=== PATIENT | male | born 1995 | race Native Hawaiian/Other Pacific Islander ===

== ENCOUNTER 2022-09-18 10:09 | Outpatient (CLI) | payer BC, SELFPAY ==
--- OUTSIDE RECORDS SUMMARY | 2022-09-18 10:11 | XMS_ITS | Encounter Summary ---
:1995 Author Organization [facility] Address [facility] [place] [address] Care Team Providers Name Role Phone No Ref-Primary, Physician Primary Care Provider [phone] Reason for Visit Reason Onset Date Comments Lab Result Notice 04/10/2020 Encounter Details Date Type Department Care Team Description 04/10/2020 Telephone [facility] Abdulaziz Quezada RN Lab Result Notice [place] [address] [place] [id number] Social History Tobacco Use Types Packs/Day Years Used Date Smoking Tobacco: Never Assessed Sex Assigned at Date Recorded Not on file COVID-19 Exposure Response Date Recorded In the last month, have you been in contact Unable to assess 04/07/2020 9:05 AM CDT with someone who was confirmed or suspected to have Coronavirus / COVID-19? 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 This means that we didn't find the virus that causes COVID-19 in your sample. A test may show negative when you do actually have the virus. This can happen when the virus is in the early stages of infection, before you feel illness symptoms. If you have symptoms Stay home and away from others (self-isolate) until you meet ALL of the guidelines below: ??? You've had no fever--and no medicine that reduces fever--for 3 full days (72 hours). And ? Your other symptoms have gotten better. For example, your cough or breathing has improved. And? At least 10 days have passed since your symptoms started. During this time: ??? Stay home. Don't go to work, school or anywhere else. ??? Stay in your own room, including for meals. Use your own bathroom if you can. ??? Stay away from others in your home. No hugging, kissing or shaking hands. No visitors. ??? Clean ???high touch?? surfaces often (doorknobs, counters, handles, etc.). Use a household cleaning spray or wipes. You can find a full list on the EPA website at www.epa.gov/pesticide-registration /fjeo-r-wjormyoddxavi-snl-tochpar-kswp-cov-2. ??? Cover your mouth and nose with a mask, tissue or washcloth to avoid spreading germs. ??? Wash your hands and face often with soap and water. Going back to work Check with your employer for any guidelines to follow for going back to work. You are sent a letter for your Employer which will serve as formal document notice that you, the employee, tested negative for COVID-19, as of the testing date shown above. If your symptoms worsen or other concerning symptoms, contact PCP, oncare or consider returning to Emergency Dept. Where can I get more information? [facility]: www.[facility].org/covid19/ ??? Coronavirus Basics: www.health.[facility].mo.us/diseases/coronavirus/basics.html ??? [facility] Hotline (017-601-9513) {Name] Abdulaziz Quezada RN [employer] [facility] Emergency Dept Lab Result RN documented in this encounter Plan of Treatment Not on filedocumented as of this encounter Visit Diagnoses Not on filedocumented in this encounter Care Teams Teacher Aide Clerical Relationship Specialty Start Date End Date No Ref-Primary, Physician PCP - General 04/07/20 documented as of this encounter
--- OUTSIDE RECORDS SUMMARY | 2022-09-18 10:11 | XMS_ITS | Encounter Summary ---
:1995 Author Organization [facility] Address [address] [place] [address] Care Team Providers Name Role Phone No Ref-Primary, Physician Primary Care Provider [phone] Encounter Details Date Type Department Care Team Description 05/06/2020 Travel Social History Tobacco Use Types Packs/Day Years Used Date Smoking Tobacco: Never Assessed Sex Assigned at Date Recorded Not on file COVID-19 Exposure Response Date Recorded In the last month, have you been in contact with No / Unsure 05/06/2020 8:05 AM CDT someone who was confirmed or suspected to have Coronavirus / COVID-19? documented as of this encounter Plan of Treatment Not on filedocumented as of this encounter Visit Diagnoses Not on filedocumented in this encounter Care Teams Processing Inspector Relationship Specialty Start Date End Date No Ref-Primary, Physician PCP - General 04/07/20 documented as of this encounter
--- OUTSIDE RECORDS SUMMARY | 2022-09-18 10:11 | XMS_ITS | Clinical Summary ---
:1995 Author Organization [facility] Address [address] [place] [address] Care Team Providers Name Role Phone Unavailable Primary Care Provider Unavailable Source Comments Patient records contain information from all sites at [facility]. For routine questions regarding patient records, call [phone] during business hours, M-F 8:00 AM - 5:00 PM Central Time. Record requests for emergency care only can be directed to [phone] at any time.[facility] Social History Tobacco Use Types Packs/Day Years Used Date Smoking Tobacco: Never Assessed Sex Assigned at Date Recorded Not on file Plan of Treatment Health Maintenance Due Date Last Done Comments HIV Screening 1995 Hepatitis B Vaccines (1 of 3 - 1995 3-dose series) Hepatitis C Screening 1995 HPV Vaccines (1 - Male 2-dose 2006 series) DTaP,Tdap,and Td Vaccines (1 - 2016 Tdap) COVID-19 Vaccine (2 - Moderna 07/27/2021 06/29/2021 series) Depression Screening (Annual 10/18/2021 PHQ-2) Influenza Vaccine (#1) 2022 10/15/2020 Pneumococcal vaccine (0-64 years) Aged Out No longer eligible based on patient's age to complete this topic Insurance Payer Benefit Plan / Subscriber ID Effective Dates Phone Addre ss Type Group BLUE CROSS [facility] BCBS [id number] 2019-Present PPO SHIELD BASIC/FOCUS
--- OUTSIDE RECORDS SUMMARY | 2022-09-18 10:11 | XMS_ITS | Encounter Summary ---
:1995 Author Organization [facility] Address [address] [place] [address] Care Team Providers Name Role Phone No Ref-Primary, Physician Primary Care Provider [phone] Encounter Details Date Type Department Care Team Description 04/07/2020 Travel Social History Tobacco Use Types Packs/Day [...] Diagnoses Not on filedocumented in this encounter Additional Health Concerns Infection Onset Date Last Indicated Resolved Time Rule Out COVID-19 04/07/2020 04/07/2020 04/08/2020 9:1 0 PM CDT documented as of this encounter Care Teams Assisted Living Care Manager Relationship Specialty Start Date End Date No Ref-Primary, Physician PCP - General 04/07/20 documented as of this encounter
--- OUTSIDE RECORDS SUMMARY | 2022-09-18 10:11 | XMS_ITS | Encounter Summary ---
:1995 Author Organization [facility] Address [address] [place] [address] Care Team Providers Name Role Phone Unavailable Primary Care Provider Unavailable Reason for Visit Reason Onset Date Comments Outpatient COVID-19 Testing 05/10/2020 Encounter Details Date Type Department Care Team Description 05/10/2020 External Outreach Department of Family Post, Merritt Rosenberg, Infection Upper Medicine, [facility] (Primary Clinic [place], [address] [facility] [place] [address] [phone] [place] [address] [address] (Work) [place], [place] [phone] (Fax) [phone] Social History Tobacco Use Types Packs/Day Years Used Date Smoking Tobacco: Never Assessed Sex Assigned at Date Recorded Not on file documented as of this encounter Progress Notes Paramjit Cristina M.S., R.N. - 05/10/2020 8:55 AM CDT Encounter created for the drive-through COVID-19 testing. documented in this encounter Miscellaneous Notes Result Encounter Note - Patrica Nolan - 05/13/2020 11:44 AM CDT Gave Negative COVID-19 result to patient via phone. documented in this encounter Plan of Treatment Not on filedocumented as of this encounter Procedures Procedure Name Priority Date/Time Associated Diagnosis Comme nts SARS CORONAVIRUS-2, Routine 05/12/2020 11:17 AM Infection Uppe r Results for this PCR CDT Respiratory procedure are i n the results section. documented in this encounter Results SARS Coronavirus-2, PCR Symptomatic (05/12/2020 11:17 AM CDT) [facility] Method Time Signature SARS Swab, 05/12/2020 [facility] Coronavirus-2 Nasopharynx 11:32 PM Source CDT SARS Undetected Undetected 05/12/2020 [facility] Coronavirus-2 11:32 PM , PCR CDT Comment: SARS-CoV-2 RNA absent. This result does not rule out COVID-19 in the patient, as the sensitivity of the test depends o n the timing of the specimen collection and quality of the specimen. Result should be correlated with patient's history and clinical presentat ion. ----ADDITIONAL INFORMATION---- This test was developed and its performa nce characteristics determined by [facility] in a manner co nsistent with CLIA requirements. Independent review by the U.S. Food and Drug Administration is pending. Visit the CDC website: https://www.cdc.gov/coronavirus/ ?? for the most recent guidelines on [place] virus testing. Fact Sheet for Healthcare Providers: (https://www.Itaconix/it-mmfil es/ Provider_Fact_Sheet_for_[facility]_COVI D-19.pdf) Fact Sheet for Patients: (https://www.Done In :60 Seconds.PublicEngines/it-mmfil es/ Patient_Fact_Sheet_for_COVID-19.pdf) Specimen Anatomical Collection Method Collection Time Receive d Time (Source) Location / / Volume Laterality Varies 05/12/2020 11:17 05/12/2020 2:53 (Nasopharynx) AM CDT PM CDT Merritt Muhammad M.D. LAB MICROBIOLOGY - GENERAL O RDERABLES Performing Organization Address City/State/ZIP Code Phon e Number [facility] - [address] [place], [place] [address] [place] [address] Laboratories-[facility] [address] documented in this encounter Visit Diagnoses Diagnosis Infection Upper Respiratory - Primary documented in this encounter Additional Health Concerns Infection Onset Date Last Indicated Resolved Time COVID19 Pending 05/10/2020 05/12/2020 05/12/2020 11:33 PM CDT documented as of this encounter
--- OUTSIDE RECORDS SUMMARY | 2022-09-18 10:11 | XMS_ITS | Encounter Summary ---
:1995 Author Organization [facility] Address [address] [place] [address] Care Team Providers Name Role Phone No Ref-Primary, Physician Primary Care Provider [phone] Encounter Details Date Type Department Care Team Description 04/07/2020 Orders Only [facility] [place] pected COVID-19 virus Care [place] infection (Primary Dx) [address] [place] [address] Social History Tobacco Use Types Packs/Day Years Used Date Smoking Tobacco: Never Assessed Sex Assigned at Date Recorded Not on file COVID-19 Exposure Response Date Recorded In the last month, have you been in contact Unable to assess 04/07/2020 9:05 AM CDT with someone who was confirmed or suspected to have Coronavirus / COVID-19? documented as of this encounter Miscellaneous Notes Result Encounter Note - Melinda Bolton RN - 04/07/2020 3:50 PM CDT Coronavirus (COVID-19) Notification Your result for COVID-19 is Negative Letter sent that will serve as a formal notice for your employer documented in this encounter Plan of Treatment Not on filedocumented as of this encounter Procedures Procedure Name Priority Date/Time Associated Diagnosis Comme nts COVID-19 VIRUS Routine 04/07/2020 3:46 PM Suspected COVID-19 R esults for this (CORONAVIRUS) BY CDT virus infection procedur e are in PCR the results section. documented in this encounter Results Symptomatic COVID-19 Virus (Coronavirus) by PCR (04/07/2020 3:46 PM CDT) [facility] Method Time Signature COVID-19 Nasopharyngeal 04/07/2020 [place] Virus PCR to 4:33 PM CDT CL[facility]ICS [facility] [place] [place] Source COVID-19 Not Detected 04/08/2020 [facility] Virus PCR to 9:10 PM CDT [facility] Result [facility] Comment: Collection of multiple specimens from th e same patient may be necessary to detect the virus. The possibility of a f alse negative should be considered if the patient's recent exposure or clinica l presentation suggests 2019 nCOV infection and diagnostic tests for other causes of illness are negative. Repeat testing may be considered in this setting. Viral RNA was extracted via a validated method and subsequently underwent single step reverse transcriptase-real t lashell polymerase chain reaction using primers to the CDC specified N1,N2 gene targets of CoV2 and human DIRECTOR BIOSTATISTICS as an internal control. A negative result does not rule out the presence of real-time PCR inhibitors in the specimen or COVID-19 RNA in kerri ntrations below the limit of detection of the assay. The possibility of a fals e negative should be considered if the patients recent exposure or clinical pr esentation suggests COVID-19. Additional testing or repeat testing req uires consultation with the laboratory. Nasopharyngeal specimen is the preferred choice for swab-based SARS CoV2 testing. When collection of a nasopharyn geal swab is not possible the following are acceptable alternatives: an oropharyngeal (OP) specimen collected by a healthcare professional, or a nasal mid-turbinate (NMT) swab collected by a healthcare professional or by onsite self-collection (using a flocked tapered swab), or an anterior nares specimen collected by a healthcare profe ssional or by onsite self-collection (using a round foam swab). (Centers for Disease Control) Testing performed by [facility], Room 1-[address], [address] [place], [place] [id number]. T his test was developed and its performance characteristics determined b y the [facility]. It has not been cleared or appr carleen by the FDA. The laboratory is regulated under the Cl inical Laboratory Improvement Amendments of 1988 (CLIA-88) as qualifie d to perform high-complexity testing. This test is used for clinical purposes. It should not be regarded as investigational or for research. Specimen (Source) Anatomical Collection Method Collection Time Re ceived Time Location / / Volume Laterality Specimen from 04/07/2020 3:46 04/07/2020 nasopharyngeal PM CDT 4:33 PM CDT structure (specimen) Stephan Ames MD LAB - MICRO GENERAL ORDERABL ES Performing Organization Address City/State/ZIP Code Phon e Number [facility] [address] [place] [address] [facility] Room: [address] [address] [address] [place], [place] [address] [place] documented in this encounter Visit Diagnoses Diagnosis Suspected COVID-19 virus infection - [facility] joy documented in this encounter Additional Health Concerns Infection Onset Date Last Indicated Resolved Time Rule Out COVID-19 04/07/2020 04/07/2020 04/08/2020 9:1 0 PM CDT documented as of this encounter Care Teams Dental Laboratory Technology Teacher Relationship Specialty Start Date End Date No Ref-Primary, Physician PCP - General 04/07/20 documented as of this encounter
--- OUTSIDE RECORDS SUMMARY | 2022-09-18 10:11 | XMS_ITS | Clinical Summary ---
:1995 Author Organization [facility] [place] [address] Care Team Providers Name Role Phone Pcp, No Primary Care Provider Unavailable Allergies Active Allergy Reactions Severity Noted Date Comments Aspirin Angioedema 07/27/2018 Medications Medication Sig Dispensed Refills Start Date End Date Status predniSONE (DELTASONE) Take 2 tablets by 8 Tablet 0 Active 20 mg mouth once daily tabletIndications: with food for 4 Sore throat, COVID-19 days for congestion. Active Problems Not on file Social History Tobacco Use Types Packs/Day Years Used Date Never Smoker Smokeless Tobacco: Never Used Tobacco Cessation: Counseling Given: Yes Alcohol Use Standard Drinks/Week Comments Yes 0 (1 standard drink = 0.6 oz pure alcoho l) Sex Assigned at Date Recorded Not on file Obstetrics History Last Filed Vital Signs Vital Sign Reading Time Taken Comments Blood Pressure 135/89 10/18/2021 12:15 PM SYSTEMS LEAD Pulse 94 10/18/2021 12:15 PM SYSTEMS LEAD Temperature 36.6 ??C (97.9 ??F) 10/18/2021 12:15 PM SYSTEMS LEAD Respiratory Rate 18 10/18/2021 12:15 PM SYSTEMS LEAD Oxygen Saturation 98% 10/18/2021 12:15 PM SYSTEMS LEAD Inhaled Oxygen Concentration - - Weight 134.3 kg (296 lb) 10/18/2021 12:15 PM SYSTEMS LEAD Height 175.3 cm (5' 9) 10/18/2021 12:15 PM SYSTEMS LEAD Body Mass Index 43.71 10/18/2021 12:15 PM SYSTEMS LEAD Plan of Treatment Health Maintenance Due Date Last Done Comments COVID-19 vaccine series (#1) 1997 HPV series for age 9-26 (1 - Male 2-dose 2008 series) Tdap 2008 Depression screening for age 12+ 2009 HIV for age 15-65 2012 Hepatitis C screening for age 18-79 2015 Tetanus booster 2017 Influenza for age 9-49 06/18/2022 BMI (ht and wt on same day) for age 18+ 10/18/2022 10/18/19 22, 07/27/2018 Results Not on filefrom Last 3 Months Insurance Payer Benefit Plan / Subscriber ID Effective Dates Phone Addre ss Type Group BLUE [employer]OSS [place] [id number] 2019-Present [address] [id number] [place] [address] Care Teams Casino Floor Person Relationship Specialty Start Date End Date Pcp, No PCP - General 07/27/18 .
--- OUTSIDE RECORDS SUMMARY | 2022-09-18 10:11 | XMS_ITS | Encounter Summary ---
:1995 Author Organization [facility] Address [address] [place] [address] Care Team Providers Name Role Phone Unavailable Primary Care Provider Unavailable Reason for Visit Reason Comments COVID Inquiry Encounter Details Date Type Department Care Team Description 10/03/2020 Clinical Communication Department of [facility] Inquiry Ophthalmology in [place], [place] [address] [place] [address] Social History Tobacco Use Types Packs/Day Years Used Date Smoking Tobacco: Never Assessed Sex Assigned at Date Recorded Not on file documented as of this encounter Miscellaneous Notes Telephone Encounter - Sammi Dobson Valentín - 10/03/2020 12:49 PM CST COVID-19 Nurse Line Screening ASSESSMENT Combo COVID + Upper Respiratory Infection (URI) Screening Select the most appropriate pathway: : Adult Have you had close contact* with a person who has a LABORATORY CONFIRMED case of COVID-19 in the past 14 days?: Yes- Provide quarantine instructions. (Continue Screening) In the last 48 hours, have you had a fever* OR symptoms that are unrelated to a preexisting illness?: New sore throat Do you have any of the following urgent symptoms?: No urgent symptoms noted (Continue Screening) Do you have any of the following respiratory syntonical virus (RSV) complications? : No complications noted (Continue Screening) Are all the following symptoms present: temperature of 100.0 degrees Fahrenheit or greater, muscle aches or headache AND a cough?: No all symptoms are not present (End Screening) Symptom Onset Date of symptom onset: 10/03/20 Testing Recommendation Endpoint Is testing recommended? : Recommended to test PLAN Endpoint recommendation: Screening negative, COVID- 19 testing indicated per request for public health , sent to [place] located at [address] [place] [address]. The entrance is on the north side of the building.You must call [phone] for an appointment time.Testing hours are Daily 9 am to 7 pm.When you arrive at the testing site: Remain in your vehicle and check-in by phone using the same appointment linenumber. and Please avoid using public transportation per CDC recommendation. If you do not have personal transportation please self- quarantine until a personal transportation option is available. Care Points: -Wash hands frequently with soap and water for at least 20 seconds -If soap and water are not available, use a hand wallpaper hanger -Avoid touching your eyes, nose and mouth. -Clean and disinfect high-touch surfaces routinely. -Wear a mask over your nose and mouth. A cloth face cover is not a substitute for social distancing -Continue to keep about 6 feet between yourself and others. -Avoid public areas and public transportation. -Find new ways to connect with family and friends, get support and share feelings. -Seek emergent care if any of the following occur Trouble breathing Bluish lips or face Persistent pain or pressure in the chest New confusion or inability to rouse. -Notify your regular care provider of any new or worsening symptoms. Symptomatic Carepoints: Separate yourself from others and stay in a specific sick room if able. Avoid sharing personal or household items. Rest. Hydrate. Take Acetaminophen/Ibuprofen as needed to control fever and muscles aches. Use over the counter medications as needed for other symptoms. Education: Not applicable Patient agreeable to plan of care: Yes The following references were used: [facility] novel coronavirus (COVID- 19) resources ARCH ASSISTANT MEMBER documented in this encounter Plan of Treatment Not on filedocumented as of this encounter Visit Diagnoses Not on filedocumented in this encounter
--- OUTSIDE RECORDS SUMMARY | 2022-09-18 10:11 | XMS_ITS | Encounter Summary ---
:1995 Author Organization [facility] Address [address] [place] [address] Care Team Providers Name Role Phone Unavailable Primary Care Provider Unavailable Reason for Visit Reason Comments Results Encounter Details Date Type Department Care Team Description 05/13/2020 Clinical Communication [facility], Results Internal Medicine, [facility], in [address] [place] [address] [place], [place] [phone] (Work) [phone] Social History Tobacco Use Types Packs/Day Years Used Date Smoking Tobacco: Never Assessed Sex Assigned at Date Recorded Not on file documented as of this encounter Plan of Treatment Not on filedocumented as of this encounter Visit Diagnoses Not on filedocumented in this encounter
--- OUTSIDE RECORDS SUMMARY | 2022-09-18 10:11 | XMS_ITS | Encounter Summary ---
:1995 Author Organization [facility] Address [address] [place] [address] Care Team Providers Name Role Phone Unavailable Primary Care Provider Unavailable Encounter Details Date Type Department Care Team Description 05/11/2020 Clinical Communication Division of [facility] Internal Alfred Pope, Medicine, Juanito Quarles, [place], in [place], [place] [address] [place] [address] Social History Tobacco Use Types Packs/Day Years Used Date Smoking Tobacco: Never Assessed Sex Assigned at Date Recorded Not on file documented as of this encounter Miscellaneous Notes Telephone Encounter - Alfred Brown, R.N., [facility] - 05/11/2020 2:33 PM CDT COVID-19 Nurse Line Screening Patient called COVID Nurse Line to inquire about a COVID-19 nasopharyngeal swab test. Patient did not meet criteria for testing. However, patient is requesting to be tested at this time. RN provided education on the increased probability of getting a false negative result. Patient understands and is aware of the risk of a false negative. All questions answered at this time. ASSESSMENT COVID 19 Screening Have you had a laboratory confirmed COVID-19Positive test in the last 3 months?: No- Continue screening. Have you had close contact with a person who has a LABORATORY CONFIRMED case of COVID-19?: No - Continue screening. In the last 48 hours have you had any of the following symptoms?: No - Complete screening. Consider alternative diagnosis. We are not currently testing or isolating patients or visitors who have no symptoms and no close contact. PLAN Endpoint recommendation: Screening negative, testing indicated per request, sent to [facility] located near [facility]. Access site from [place] to [address]. Look for electronic signs for collection entry point. Testing hours are M-F 9:30 am to 5 p.m and Sat-Sun 10 am to 4 pm. Care Points provided: STANDARD PRECAUTIONS FOR ALL PATIENTS: Wash hands often with soap and water for at least 20 seconds, especially after blowing your nose, coughing, sneezing, or having been in a public place. If soap and water aren't available, use a hand [employer] advisor that contains at least 60% alcohol. Avoid close contact with anyone who may be exhibiting respiratory symptoms such as coughing and sneezing. Avoid touching your eyes, nose and mouth. Clean and disinfect frequently touched surfaces daily. Cover your mouth and nose with a cloth face cover when around others or in public. The cloth face cover is not a substitute for social distancing. Continue to keep about 6 feet between yourself andothers. Monitor for symptoms. Do not take your temperature within 30 minutes of exercise. If your test or screen is negative and new symptoms develop please contact your provider if it has been greaterthan 72 hours since you were tested. Educational Resource: https://www.cdc.gov/coronavirus/2019-ncov/ fmtuntz-dxocorh-kwxg/index.html RECOMMENDATIONS TESTING CRITERIA IS MET: Stay home except to get medical care. Avoid public areasand public transportation. Separate yourself from other people and stay in a specific sick room ifpossible. Wear a cloth face covering, over your nose and mouth if you must be around other people even at home). Cover your nose and mouth when coughing or sneezing. Contact employer/occupational health department to notify them that they are being tested. Seek emergent care if any of the following occur: 1) Trouble breathing, 2) Bluish lips or face, 3) Persistent pain or pressure in the chest, 4) Newly confused or unable to stay alert and awake. Notify appropriate care provider if any new or worsening symptoms. You may need re-testing if it has been greater than 72 hours after a negative COVID-19 test result. Education Resources: https://www.cdc.gov/coronavirus/2019-ncov/tp-uat-iqg-sick/hgvcx-ghcc-axdd.html SELF CARE FOR ALL PATIENTS: Take breaks from watching, reading, or listening to news stories. Make time to unwind. Try to do some other activities you enjoy. Connect with others. Be creative in keepingconnected with loved ones, especially those at high risk. Try healthy coping strategies such as meditation, relaxation, exercise, healthy eating habits, and avoid alcohol and drugs. Education: patient/caregiver Patient/caregiver able to teach back Patient agreeable to plan of care: Yes The following references were used: [facility] novel coronavirus (COVID- 19) resources Nursing judgement documented in this encounter Plan of Treatment Not on filedocumented as of this encounter Visit Diagnoses Not on filedocumented in this encounter Additional Health Concerns Infection Onset Date Last Indicated Resolved Time COVID19 Pending 05/10/2020 05/12/2020 05/12/2020 11:33 PM CDT documented as of this encounter
--- OUTSIDE RECORDS SUMMARY | 2022-09-18 10:11 | XMS_ITS | Clinical Summary ---
:1995 Author Organization [facility] Address [address] [place] [address] Care Team Providers Name Role Phone No Ref-Primary, Physician Primary Care Provider [phone] Social History Tobacco Use Types Packs/Day Years Used Date Smoking Tobacco: Never Assessed Sex Assigned at Date Recorded Not on file Plan of Treatment Health Maintenance Due Date Last Done Comments ADVANCE CARE PLANNING 1995 ANNUAL REVIEW OF HM ORDERS 1995 HEPATITIS B IMMUNIZATION (1 of 3 - 1995 3-dose series) YEARLY PREVENTIVE VISIT 1995 COVID-19 Vaccine (#1) 1997 HPV IMMUNIZATION (1 - Male 2-dose 2008 series) HIV SCREENING 2012 HEPATITIS C SCREENING 2015 PHQ-2 (once per calendar year) 2021 DTAP/TDAP/TD IMMUNIZATION (1 - 2022 Tdap) INFLUENZA VACCINE (#1) 2022 IPV IMMUNIZATION Aged Out No longer eligi ble based on patient's age to complete this topic MENINGITIS IMMUNIZATION Aged Out No longe r eligible based on patient's age to complete this topic Pneumococcal Vaccine: Pediatrics Aged Out No longer eligible based on (0 to 5 Years) and At-Risk patie nt's age to complete this Patients (6 to 64 Years) topic Insurance Payer Benefit Plan / Subscriber ID Effective Dates Phone Addre ss Type Group BCBS BCBS FEDERAL [id number] 2019-Present [phone] [address] [id number] [place] [address] Care Teams Load Tester Relationship Specialty Start Date End Date No Ref-Primary, Physician PCP - General 04/07/20
--- OUTSIDE RECORDS SUMMARY | 2022-09-18 10:11 | XMS_ITS | Encounter Summary ---
:1995 Author Organization [facility] Address [address] [place] [address] Care Team Providers Name Role Phone Unavailable Primary Care Provider Unavailable Encounter Details Date Type Department Care Team Description 10/03/2020 Admin Visit Department of Family Medicine, [address] [address] [facility] [phone] Social History Tobacco Use Types Packs/Day Years Used Date Smoking Tobacco: Never Assessed Sex Assigned at Date Recorded Not on file documented as of this encounter Plan of Treatment Not on filedocumented as of this encounter Visit Diagnoses Not on filedocumented in this encounter Additional Health Concerns Infection Onset Date Last Indicated Resolved Time COVID19 Pending 10/03/2020 10/03/2020 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
--- OUTSIDE RECORDS SUMMARY | 2022-09-18 10:11 | XMS_ITS | Encounter Summary ---
:1995 Author Organization [facility] Address [address] [place] [address] Care Team Providers Name Role Phone Unavailable Primary Care Provider Unavailable Encounter Details Date Type Department Care Team Description 02/12/2021 Orders Only [facility] Sa christa Mckenzie M.D. [address] [place], [place] [phone] (Wo rk) Social History Tobacco Use Types Packs/Day Years Used Date Smoking Tobacco: Never Assessed Sex Assigned at Date Recorded Not on file documented as of this encounter Plan of Treatment Not on filedocumented as of this encounter Visit Diagnoses Not on filedocumented in this encounter
--- NOTE | 2022-09-18 10:20 | CRLHL7_ITS ---
For Patients: As a result of the Century Cures Act, medical imaging exams and procedure reports are released immediately into your electronic medical record. You may view this report before your referring provider. If you have questions, please contact your health care provider. Indication: HYPERPROLACTINEMIA Technique: High-resolution sagittal and coronal, pre and postcontrast T1 weighted sequences through the pituitary gland, axial diffusion, T2 FLAIR sequences are provided. 15 ml Dotarem gadolinium based IV contrast was administered. Comparison: MRI 10/22/2020 Findings: Ventricles, sulci and gyri are normal size shape and contour for age. The midline structures are centrally located with no evidence of shift. There are no suspicious intra or extra-axial fluid collections. Few scattered foci of T2/FLAIR signal hyperintensity in the right frontal lobe subcortical white matter nonspecific but typical for sequela of migraines or prior inflammation/demyelination. No region of restricted diffusion or abnormal parenchymal enhancement. Decreased size of the T2 hyperintense hypoenhancing lesion in the right aspect of the adenohypophysis measuring up to 4 x 4 mm previously 7 x 7 mm measured coronally (image 7 series 9). No cavernous sinus or suprasellar extension. The infundibulum is midline. No mass effect on the optic chiasm. Few scattered foci of T2/FLAIR signal hyperintensity in the right frontal lobe subcortical white matter are nonspecific Expected flow voids within the cavernous carotids and basilar artery. No regions of restricted diffusion. Mild mucosal thickening in the left frontal sinus. Mild mucosal thickening in the left ethmoid air cells. Impression: 1. No evidence of acute intracranial abnormality. 2. Decreased size of the T2 hyperintense hypointense thing lesion in the right aspect the adenohypophysis most consistent with microadenoma. 3. No evidence of cavernous sinus or suprasellar extension. 4. Few scattered foci of T2/FLAIR signal hyperintensity in the right frontal lobe subcortical white matter are nonspecific but typical for sequela of migraines or prior inflammation/demyelination. Dictated by Jesus Harrison MD @ 09/18/2022 12:38:24 PM (Electronically Signed)
== END 2022-09-18 10:10 | disposition home or self-care (01) ==
PROVIDERS: PCP Family Medicine; Visit Provider Specialist
DX: E22.1 Hyperprolactinemia (principal)
CPT/HCPCS: 70553; A9575